=== PATIENT | female | born 2000 | race Caucasian/White ===

== ENCOUNTER → 2020-04-09 17:12 | Observation (INO) ==
[2020-04-09 16:16] VITALS: BP 131/82
[2020-04-09 17:20] LABS: Bilirubin,Urine Negative (Negative); Blood,Urine Negative (Negative); Clarity,Urine Cloudy (Clear); Color,Urine Yellow (Yellow); Glucose,Urine (UA) Normal (Normal); Ketones,Urine Negative (Negative); Leukocyte Esterase,Urine Trace (Negative); Nitrite,Urine Negative (Negative); Protein,Urine Negative (Neg-Trace); Specific Gravity,Urine 1.005 (1.010-1.025); Urobilinogen,Urine Normal (Normal)
[2020-04-09 17:24] LABS: Bacteria,Urine None Seen per hpf (None-Few); Hyaline Casts,Urine None Seen per lpf (None-Few); RBC,Urine 0-3 per hpf (0-3); Squamous Epithelial Cell,Urine Many per lpf (None-Few)
== END | disposition home or self-care (01) ==
LOC: 1NENULAB
PROVIDERS: ADMIT Obstetrics & Gynecology; ATTEND Obstetrics & Gynecology

== ENCOUNTER 2020-04-17 22:00 | Observation (INO) ==
[2020-04-17 20:54] LABS: Basophils # 0.1 K/mcL (0.0-0.2); Basophils % 0.4 %; Eosinophils # 0.3 K/mcL (0.0-0.6); Eosinophils % 2.4 %; Hematocrit 34.7 % (35.3-44.9); Hemoglobin 11.7 g/dL (11.5-15.4); Immature Granulocytes % 0.5 % (0-4); Lymphocytes # 3.3 K/mcL (0.6-4.6); Lymphocytes % 25.7 %; Mean Corpuscular HGB Conc 33.7 g/dL (31.6-35.5); Mean Corpuscular Hemoglobin 28.7 pg (28.0-33.3); Mean Corpuscular Volume 85.3 fL (83.0-100.0); Mean Platelet Volume 9.3 fL (9.4-12.4); Monocytes # 0.9 K/mcL (0.0-1.3); Monocytes % 6.7 %; Neutrophils # 8.2 K/mcL (1.6-8.9); Platelet Count 299 K/mcL (140-400); Red Blood Count 4.07 M/mcL (3.82-4.97); Red Cell Distribution Width 14.1 % (11.5-14.5); Segmented Neutrophils % 64.3 %; White Blood Count 12.8 K/mcL (4.3-11.1)
[2020-04-17 21:01] LABS: Protein/Creatinine Ratio,Urine 0.15 mg/mg (0.00-0.20)
[2020-04-17 21:11] LABS: Alanine Aminotransferase 14 Units/L (7-52); Aspartate Amino Transferase 12 Units/L (13-39); BUN/Creatinine Ratio 14 (6-26); Blood Urea Nitrogen 7 mg/dL (6-20); Lactate Dehydrogenase 130 Units/L (140-271); Uric Acid 5.7 mg/dL (2.3-7.6); eGFR For African Americans > 60 (> 60); eGFR For Non-African Americans > 60 (> 60)
[~2020-04-17 22:00] MED LIST: Ondansetron ODT 4 MG TAB.RAPDIS SL ONE
== END 2020-04-17 22:04 | disposition home or self-care (01) ==
LOC: 1NENULAB
PROVIDERS: ADMIT Obstetrics & Gynecology; ATTEND Obstetrics & Gynecology

== ENCOUNTER → 2020-05-17 21:35 | Observation (INO) ==
[2020-05-17 20:40] LABS: Bacteria,Urine Few per hpf (None-Few); Bilirubin,Urine Negative (Negative); Blood,Urine Negative (Negative); Budding Yeast,Urine Few per hpf (None Seen); Clarity,Urine Turbid (Clear); Color,Urine Light-Yellow (Yellow); Glucose,Urine (UA) Normal (Normal); Ketones,Urine Negative (Negative); Leukocyte Esterase,Urine Small (Negative); Mucus,Urine Few per lpf (None-Few); Nitrite,Urine Negative (Negative); PH,Urine 6.5 pH Units (5.0-8.0); Protein,Urine Negative (Neg-Trace); RBC,Urine 0-3 per hpf (0-3); Squamous Epithelial Cell,Urine Moderate per hpf (None-Few); Urobilinogen,Urine Normal (Normal)
== END | disposition home or self-care (01) ==
LOC: 1NENULAB
PROVIDERS: ADMIT Student in an Organized Health Care Education/Training Program; ATTEND Student in an Organized Health Care Education/Training Program

== ENCOUNTER → 2020-05-22 19:40 | Observation (INO) ==
[2020-05-22 16:29] LABS: Basophils % 0.4 %; Eosinophils # 0.4 K/mcL (0.0-0.6); Eosinophils % 3.8 %; Hematocrit 34.1 % (35.3-44.9); Hemoglobin 11.3 g/dL (11.5-15.4); Immature Granulocytes % 0.5 % (0-4); Lymphocytes # 2.6 K/mcL (0.6-4.6); Lymphocytes % 24.6 %; Mean Corpuscular HGB Conc 33.1 g/dL (31.6-35.5); Mean Corpuscular Hemoglobin 28.5 pg (28.0-33.3); Mean Corpuscular Volume 85.9 fL (83.0-100.0); Mean Platelet Volume 9.5 fL (9.4-12.4); Monocytes # 1.1 K/mcL (0.0-1.3); Monocytes % 9.9 %; Neutrophils # 6.5 K/mcL (1.6-8.9); Platelet Count 314 K/mcL (140-400); Red Blood Count 3.97 M/mcL (3.82-4.97); Red Cell Distribution Width 13.9 % (11.5-14.5); Segmented Neutrophils % 60.8 %; White Blood Count 10.6 K/mcL (4.3-11.1)
[2020-05-22 16:40] LABS: Protein/Creatinine Ratio,Urine 0.21 mg/mg (0.00-0.20)
[2020-05-22 16:54] LABS: Alanine Aminotransferase 12 Units/L (7-52); Aspartate Amino Transferase 11 Units/L (13-39); BUN/Creatinine Ratio 14 (6-26); Blood Urea Nitrogen 7 mg/dL (6-20); Lactate Dehydrogenase 118 Units/L (140-271); Uric Acid 5.6 mg/dL (2.3-7.6); eGFR For African Americans > 60 (> 60); eGFR For Non-African Americans > 60 (> 60)
[~2020-05-22 19:40] MED LIST changes: +Betamethasone Acet/SodPhos 30 MG/5 ML VIAL IM SCH; -Ondansetron ODT 4 MG TAB.RAPDIS SL ONE
== END | disposition home or self-care (01) ==
LOC: 1NENULAB
PROVIDERS: ADMIT Student in an Organized Health Care Education/Training Program; ATTEND Student in an Organized Health Care Education/Training Program

== ENCOUNTER → 2020-06-01 22:15 | Observation (INO) ==
[2020-06-01 21:01] VITALS: BP 139/80
[2020-06-01 21:33] LABS: Protein/Creatinine Ratio,Urine 0.17 mg/mg (0.00-0.20)
[2020-06-01 21:35] LABS: Bacteria,Urine Few per hpf (None-Few); Bilirubin,Urine Negative (Negative); Blood,Urine Negative (Negative); Clarity,Urine Turbid (Clear); Color,Urine Light-Yellow (Yellow); Glucose,Urine (UA) Normal (Normal); Ketones,Urine Negative (Negative); Leukocyte Esterase,Urine Small (Negative); Mucus,Urine Few per lpf (None-Few); Nitrite,Urine Negative (Negative); PH,Urine 6.5 pH Units (5.0-8.0); Protein,Urine Trace mg/dL (Neg-Trace); RBC,Urine 0-3 per hpf (0-3); Squamous Epithelial Cell,Urine Moderate per hpf (None-Few); Urobilinogen,Urine Normal (Normal)
[2020-06-01 22:07] LABS: Candida DNA Not Detected (Not Detect); Gardnerella DNA Not Detected (Not Detect); Trichomonas DNA Not Detected (Not Detect)
== END | disposition home or self-care (01) ==
LOC: 1NENULAB
PROVIDERS: ADMIT Obstetrics & Gynecology; ATTEND Obstetrics & Gynecology

== ENCOUNTER → 2020-06-03 19:37 | Observation (INO) ==
[2020-06-03 18:17] LABS: Protein/Creatinine Ratio,Urine 0.21 mg/mg (0.00-0.20)
[2020-06-03 18:55] LABS: Alanine Aminotransferase 13 Units/L (7-52); Aspartate Amino Transferase 13 Units/L (13-39); BUN/Creatinine Ratio 14 (6-26); Blood Urea Nitrogen 7 mg/dL (6-20); Lactate Dehydrogenase 118 Units/L (140-271); Uric Acid 5.9 mg/dL (2.3-7.6); eGFR For African Americans > 60 (> 60); eGFR For Non-African Americans > 60 (> 60)
[2020-06-03 19:02] LABS: Basophils % 0.3 %; Eosinophils # 0.4 K/mcL (0.0-0.6); Eosinophils % 3.2 %; Hematocrit 35.3 % (35.3-44.9); Hemoglobin 11.3 g/dL (11.5-15.4); Immature Granulocytes % 0.4 % (0-4); Lymphocytes # 2.9 K/mcL (0.6-4.6); Lymphocytes % 25.7 %; Mean Corpuscular Hemoglobin 27.6 pg (28.0-33.3); Mean Corpuscular Volume 86.3 fL (83.0-100.0); Mean Platelet Volume 9.8 fL (9.4-12.4); Monocytes # 0.8 K/mcL (0.0-1.3); Monocytes % 7.1 %; Neutrophils # 7.1 K/mcL (1.6-8.9); Platelet Count 308 K/mcL (140-400); Red Blood Count 4.09 M/mcL (3.82-4.97); Red Cell Distribution Width 14.2 % (11.5-14.5); Segmented Neutrophils % 63.3 %; White Blood Count 11.1 K/mcL (4.3-11.1)
== END | disposition home or self-care (01) ==
LOC: 1NENULAB
PROVIDERS: ADMIT Obstetrics & Gynecology; ATTEND Obstetrics & Gynecology

== ENCOUNTER 2020-06-15 09:47 | Inpatient (IN) ==
[2020-06-15] MEDS ORDERED: *HR* Labetalol 20 MG/4 ML SYRINGE IVP ONE ×7 (10:25→15:53)
[2020-06-15] MEDS ORDERED: Metoclopramide 10 MG/2 ML VIAL IVP ONE (10:26)
[2020-06-15] MEDS ORDERED: CeFAZolin Syr 3,000MG/30 ML 3,000 MG/30 ML SYRINGE IVPB ONE (10:26)
[2020-06-15] MEDS ORDERED: Famotidine 20 MG/2 ML VIAL IVP ONE (10:26)
[2020-06-15] MEDS ORDERED: Ringers Solution, Lactated 1,000 ML IVC ONE (10:26)
[2020-06-15] MEDS ORDERED: Ringers Solution, Lactated 1,000 ML IVC SCH ×2 (10:30→17:10)
[2020-06-15] MEDS ORDERED: *HR* FentaNYL (PF) 100 MCG/2 ML VIAL ONE (10:54)
[2020-06-15] MEDS ORDERED: *HR* Morphine Sulfate/PF 10 MG/10 ML AMPUL ONE (10:54)
[2020-06-15] MEDS ORDERED: *HR* Oxytocin 10 UNIT/ML VIAL IM ONE (10:56)
[2020-06-15] MEDS ORDERED: Ringers Solution, Lactated 1,000 ML ONE (10:57)
[2020-06-15 10:58] LABS: Basophils % 0.4 %; Eosinophils # 0.4 K/mcL (0.0-0.6); Eosinophils % 3.8 %; Hemoglobin 11.2 g/dL (11.5-15.4); Immature Granulocytes % 0.6 % (0-4); Lymphocytes # 2.7 K/mcL (0.6-4.6); Lymphocytes % 23.8 %; Mean Corpuscular HGB Conc 32.9 g/dL (31.6-35.5); Mean Corpuscular Hemoglobin 28.4 pg (28.0-33.3); Mean Corpuscular Volume 86.3 fL (83.0-100.0); Mean Platelet Volume 9.5 fL (9.4-12.4); Monocytes # 0.9 K/mcL (0.0-1.3); Monocytes % 7.8 %; Neutrophils # 7.1 K/mcL (1.6-8.9); Platelet Count 302 K/mcL (140-400); Red Blood Count 3.94 M/mcL (3.82-4.97); Segmented Neutrophils % 63.6 %; White Blood Count 11.2 K/mcL (4.3-11.1)
[2020-06-15 11:07] LABS: Amphetamine Screen,Urine Negative ng/mL (Cutoff=1000); Barbiturate Screen,Urine Negative ng/mL (Cutoff=200); Benzodiazepines Screen,Urine Negative ng/mL (Cutoff=200); Cannabinoid Screen,Urine Negative ng/mL (Cutoff = 50); Cocaine Screen,Urine Negative ng/mL (Cutoff= 300); Creatinine,Urine 58 mg/dL; Opiate Screen,Urine Negative ng/mL (Cutoff=300); Phencyclidine Screen,Urine Negative ng/mL (Cutoff=25); Protein/Creatinine Ratio,Urine 0.21 mg/mg (0.00-0.20)
[2020-06-15] MEDS ORDERED: Calcium Gluconate 1,000 MG/10 ML VIAL IVP PRN ×2 (11:09→17:10)
[2020-06-15] MEDS ORDERED: Magnesium Sulf 20 gm/SW 500mL 20 GM/500 ML IV.SOLN IVC SCH (11:15)
[2020-06-15 11:16] LABS: Alanine Aminotransferase 10 Units/L (7-52); Aspartate Amino Transferase 11 Units/L (13-39); BUN/Creatinine Ratio 13 (6-26); Blood Urea Nitrogen 6 mg/dL (6-20); Lactate Dehydrogenase 119 Units/L (140-271); Uric Acid 6.4 mg/dL (2.3-7.6); eGFR For African Americans > 60 (> 60); eGFR For Non-African Americans > 60 (> 60)
[2020-06-15] MEDS ORDERED: *HR* Succinylcholine 200 MG/10 ML VIAL IVP ONE (13:16)
[2020-06-15] MEDS ORDERED: *HR* Propofol 200 MG/20 ML VIAL IVP ONE (13:16)
[2020-06-15] MEDS ORDERED: Lidocaine -MPF 2% 5 ML VIAL ONE ×2 (13:16→13:40)
[2020-06-15] MEDS ORDERED: Acetaminophen IV 1,000 MG/100 ML BAG ONE (13:46)
[2020-06-15] MEDS ORDERED: Ketorolac 30 MG/ML VIAL ONE (14:12)
[2020-06-15] MEDS ORDERED: *HR* HYDROmorphone PF 0.5 MG/0.5 ML SYRINGE IVP PRN ×2 (14:13→19:13)
[2020-06-15] MEDS ORDERED: *HR* Promethazine 25 MG/ML VIAL IVP PRN (14:13)
[2020-06-15] MEDS ORDERED: Naloxone 0.4 MG/ML INJ IVP PRN (14:13)
[2020-06-15] MEDS ORDERED: Ondansetron 4 MG/2 ML VIAL IVP PRN ×2 (14:13→17:10)
[2020-06-15] MEDS ORDERED: Ondansetron 4 MG/2 ML VIAL ONE (14:17)
[2020-06-15] MEDS ORDERED: *HR* HYDROMORPHONE 2 MG/ML VIAL ONE (14:32)
[2020-06-15] MEDS ORDERED: *HR* HYDROmorphone (PF) 1 MG/ML SYRINGE IVP PRN (15:43)
[2020-06-15] MEDS ORDERED: Oxytocin 20 units/ LR 1000 mL 20 UNIT/1,000 ML BAG IVC ONE (15:50)
[2020-06-15] MEDS ORDERED: *HR* HYDROmorphone 2 MG TABLET PO PRN (15:50)
[2020-06-15] MEDS ORDERED: Metoclopramide 10 MG/2 ML VIAL IVP PRN (17:10)
[2020-06-15] MEDS ORDERED: Simethicone 80 MG TAB.CHEW PO PRN (17:10)
[2020-06-15] MEDS ORDERED: Oxytocin 20 units/ LR 1000 mL 20 UNIT/1,000 ML BAG IVC SCH (17:10)
[2020-06-15] MEDS ORDERED: Acetaminophen 325 MG TABLET PO PRN (17:10)
[2020-06-15] MEDS ORDERED: *HR* OxyCODONE Immed Rel 5 MG TABLET PO PRN (17:10)
[2020-06-15] MEDS ORDERED: Sennosides 8.6 MG TABLET PO PRN (17:10)
[2020-06-15] MEDS ORDERED: Acetaminophen IV 1,000 MG/100 ML BAG IVPB SCH (18:00)
[2020-06-15] MEDS ORDERED: Ketorolac 30 MG/ML VIAL IVP SCH (18:00)
[2020-06-15] MEDS: Acetaminophen IV 1,000 MG/100 ML BAG IVPB SCH (19:39)
[2020-06-15] MEDS: Magnesium Sulf 20 gm/SW 500mL 20 GM/500 ML IV.SOLN IVC SCH (22:15)
[2020-06-16] MEDS: Ketorolac 30 MG/ML VIAL IVP SCH ×3 (00:25→13:05)
[2020-06-16] MEDS: *HR* HYDROmorphone 2 MG TABLET PO PRN ×2 (00:29→11:12)
[2020-06-16] MEDS: Acetaminophen IV 1,000 MG/100 ML BAG IVPB SCH ×4 (01:27→18:23)
[2020-06-16 05:48] LABS: Basophils % 0.3 %; Eosinophils # 0.1 K/mcL (0.0-0.6); Eosinophils % 1.2 %; Hematocrit 29.4 % (35.3-44.9); Immature Granulocytes % 0.3 % (0-4); Lymphocytes % 18.8 %; Mean Corpuscular HGB Conc 32.7 g/dL (31.6-35.5); Mean Corpuscular Hemoglobin 28.7 pg (28.0-33.3); Mean Corpuscular Volume 87.8 fL (83.0-100.0); Mean Platelet Volume 9.4 fL (9.4-12.4); Monocytes % 9.1 %; Neutrophils # 7.4 K/mcL (1.6-8.9); Platelet Count 239 K/mcL (140-400); Red Blood Count 3.35 M/mcL (3.82-4.97); Red Cell Distribution Width 14.1 % (11.5-14.5); Segmented Neutrophils % 70.3 %; White Blood Count 10.5 K/mcL (4.3-11.1)
[2020-06-16 05:51] LABS: Hemoglobin 9.6 g/dL (11.5-15.4)
[2020-06-16] MEDS: Prenatal Vit/FA 1 EACH TABLET PO SCH (08:04)
[2020-06-16] MEDS: Magnesium Sulf 20 gm/SW 500mL 20 GM/500 ML IV.SOLN IVC SCH (08:05)
[2020-06-16] MEDS ORDERED: Rho Immune Globulin 1,500 UNIT SYRINGE IM ONE (12:21)
[2020-06-16] MEDS ORDERED: *HR* OxyCODONE/APAP 5/325 TABLET PO PRN (19:39)
[2020-06-16] MEDS ORDERED: Ibuprofen 600 MG TABLET PO PRN (19:39)
[2020-06-17 05:38] LABS: Alanine Aminotransferase 10 Units/L (7-52); Aspartate Amino Transferase 16 Units/L (13-39); BUN/Creatinine Ratio 17 (6-26); Blood Urea Nitrogen 11 mg/dL (6-20); Lactate Dehydrogenase 184 Units/L (140-271); Uric Acid 7.8 mg/dL (2.3-7.6); eGFR For African Americans > 60 (> 60); eGFR For Non-African Americans > 60 (> 60)
[2020-06-17 05:40] LABS: Basophils % 0.3 %; Eosinophils # 0.2 K/mcL (0.0-0.6); Eosinophils % 2.7 %; Hematocrit 26.5 % (35.3-44.9); Hemoglobin 8.6 g/dL (11.5-15.4); Immature Granulocytes % 0.3 % (0-4); Lymphocytes # 2.5 K/mcL (0.6-4.6); Lymphocytes % 28.4 %; Mean Corpuscular HGB Conc 32.5 g/dL (31.6-35.5); Mean Corpuscular Hemoglobin 28.8 pg (28.0-33.3); Mean Corpuscular Volume 88.6 fL (83.0-100.0); Mean Platelet Volume 9.8 fL (9.4-12.4); Monocytes # 0.7 K/mcL (0.0-1.3); Monocytes % 8.2 %; Neutrophils # 5.3 K/mcL (1.6-8.9); Platelet Count 264 K/mcL (140-400); Red Blood Count 2.99 M/mcL (3.82-4.97); Red Cell Distribution Width 14.6 % (11.5-14.5); Segmented Neutrophils % 60.1 %; White Blood Count 8.9 K/mcL (4.3-11.1)
[2020-06-17 07:42] VITALS: BP 147/83
[2020-06-17] MEDS: Prenatal Vit/FA 1 EACH TABLET PO SCH (07:53)
== END 2020-06-17 10:30 | disposition home or self-care (01) | DRG 788 ==
LOC: 1NENULAB 09:47 → 1NENUOBS 17:12
PROVIDERS: ADMIT Obstetrics & Gynecology; ATTEND Obstetrics & Gynecology